=== PATIENT | female | born 1985 | race Caucasian/White ===

== ENCOUNTER 2024-06-25 10:16 | Emergency (ER) | payer OTHER ==
[~2024-06-25] VITALS: Ht 162.6 cm; Wt 70.0 kg
[2024-06-25] MEDS: IBUPROFEN 800 MG TAB PO ONE (11:40)
[2024-06-25 12:10] VITALS: BP 168/95; TEMP 97.1; O2SAT 97
[2024-06-25] MEDS ORDERED: IBUP80TA PO (12:11)
== END 2024-06-25 12:39 | disposition home or self-care (01) ==
LOC: M ED 10:16
DX: S62.635A Displaced fracture of distal phalanx of left ring finger, initial encounter for closed fracture (principal); W23.1XXA Caught, crushed, jammed, or pinched between stationary objects, initial encounter; G90.A Postural orthostatic tachycardia syndrome [POTS]; J45.909 Unspecified asthma, uncomplicated; K51.90 Ulcerative colitis, unspecified, without complications; K21.9 Gastro-esophageal reflux disease without esophagitis; Z79.1 Long term (current) use of non-steroidal anti-inflammatories (NSAID); Y92.89 Other specified places as the place of occurrence of the external cause; Y93.89 Activity, other specified; Y99.0 Civilian activity done for income or pay